=== PATIENT | female | born 2005 | race Caucasian/White ===

== ENCOUNTER 2024-05-28 17:39 | Emergency (ER) | payer SELFPAY ==
[2024-05-28 18:04] VITALS: BP 138/80; PULSE 98; TEMP 36.8; O2SAT 100; BMI 47.4
--- NOTE | 2024-05-28 18:20 | ED_ITS ---
HPI - Skin/Abscess/Foreign Bdy General Chief complaint: Skin/Abscess/Foreign Body Stated complaint: LUMP Time Seen by Provider: 05/28/24 18:19 Source: patient and friend (Rita) Mode of arrival: walk-in Limitations: no limitations History of Present Illness HPI narrative: 18-year-old female presents to the emergency department rita with complaint of tender lump with some mild redness to her mid chest. States started having some discomfort in this area couple days ago, but redness and bump did not develop until today. Has had history of boils in the past. Denies any fever, chills, drainage. Quality:?As above Severity:?Mild Timing:?2 days, worsening Context: Normal setting and activity? Modifying factors:?Pain worse with palpation Associated symptoms: As above Related Data Previous Rx's ?Medication ?Instructions ?Recorded sulfamethoxazole 800 1 tab PO BID #14 tabs 05/28/24 mg-trimethoprim 160 mg tablet (Bactrim DS) Allergies Allergy/AdvReac Type Severity Reaction Status Date / Time No Known Drug Allergies Allergy Verified 05/28/24 18:04 Review of Systems ROS Narrative CONST: Denies any fever, chills ENDOCRINE: Denies history of diabetes MS: Denies arthralgias, myalgias SKIN: + color change, swelling.? Denies any itching NEURO: Denies any numbness, tingling PFSH PFSH Social History Little interest or pleasure in doing things: not at all Feeling down, depressed, or hopeless: not at all Exam Narrative Exam Narrative: Vital signs reviewed Nurses notes noted CONST: Nontoxic, well appearing, well nourished, in no distress.? No diaphoresis.?? HENT: normocephalic, atraumatic, moist mucous membrane, no abnormalities of the nose noted, hearing normal EYES: normal appearing conjunctiva, no apparent discharge bilat NECK: normal appearance MS: no edema SKIN: Examination performed under direct supervision of COLLEEN Negrete. + mild erythema, swelling to mid chest left lateral sternal border. No appreciable induration, fluctuance, pointing.? Not currently draining NEURO: A&Ox 3 PSYCH: normal mood, affect Constitutional Vital Signs, click to edit/add: Last Vital Signs Temp 98.3 F 05/28/24 18:04 Pulse 98 H 05/28/24 18:04 Resp 20 05/28/24 18:04 BP 138/80 05/28/24 18:04 Pulse Ox 100 05/28/24 18:04 O2 Del Method Room Air 05/28/24 18:04 Course Vital Signs Vital signs: Vital Signs Temperature 98.3 F 05/28/24 18:04 Pulse Rate 98 H 05/28/24 18:04 Respiratory Rate 20 05/28/24 18:04 Blood Pressure 138/80 05/28/24 18:04 Pulse Oximetry 100 05/28/24 18:04 Oxygen Delivery Method Room Air 05/28/24 18:04 Temperature 98.3 F 05/28/24 18:04 Pulse Rate 98 H 05/28/24 18:04 Respiratory Rate 20 05/28/24 18:04 Blood Pressure 138/80 05/28/24 18:04 Pulse Oximetry 100 05/28/24 18:04 Oxygen Delivery Method Room Air 05/28/24 18:04 MDM - Skin/Abscess/Foreign Bdy MDM Narrative Medical decision making narrative: This is a pleasant 18-year-old female presenting to the emergency department with fianc? with complaint of pain, redness, swelling to her chest. Located to the left sternal border. Onset about 2 days ago with progressive worsening today. Has had skin infections in the past. On arrival, afebrile, vital signs are stable. Exam, nontoxic, well-appearing patient in no apparent distress. She has small area of redness, swelling noted to the left sternal border mid chest. Exam performed under direct supervision of COLLEEN Negrete. There was no induration, pointing, fluctuance noted to the area. States area is somewhat tender. History and record review Discussion with independent historian: Fianc? Favor soft tissue infection Abscess requiring I&D less likely based on history and physical exam Contact dermatitis less likely based on history and physical exam Disposition ? The patient was discharged. Plan: Patient will be discharged to home. Condition at time of disposition: stable Prescription transmitted to her pharmacy Advised warm compresses Advised to follow up with primary provider. Advised to return for any worsening and/or development of new, concerning signs or symptoms PLEASE NOTE: Portions of the medical record may have been produced using electronic surgical nurse practitioner and may contain errors with respect to translation of words which may not have been identified prior to finalization of the chart. Medical Records Attestation: I reviewed the patient's medical records. Discharge Plan Discharge Chief Complaint: Skin/Abscess/Foreign Body Clinical Impression: Skin infection Patient Disposition: Home, Self-Care Time of Disposition Decision: 18:24 Condition: Good Mode of Transportation: Private Vehicle Prescriptions / Home Meds: New sulfamethoxazole-trimethoprim [Bactrim DS] 800-160 mg tablet 1 tab PO BID Qty: 14 0RF Print Language: Hungarian Instructions: Cellulitis (ED) Referrals: April Euceda NP [Primary Care Provider] - 1 week Discharge Date/Time: 05/28/24 18:31
== END 2024-05-28 18:31 | disposition home or self-care (01) ==
PROVIDERS: Emergency Provider Student in an Organized Health Care Education/Training Program; PCP Nurse Practitioner Family
DX: L08.9 Local infection of the skin and subcutaneous tissue, unspecified (principal)
CPT/HCPCS: 99283